=== PATIENT | male | born 1985 | race Hispanic/Latino ===

== ENCOUNTER 2018-03-05 22:18 | Emergency (ER) | payer BC ==
[2018-03-06] MEDS ORDERED: DILAUDID ONE (02:05)
[2018-03-06] MEDS ORDERED: TORADOL ONE (02:05)
[2018-03-06] MEDS ORDERED: DILAUDID IM ONE (02:13)
[2018-03-06] MEDS ORDERED: TORADOL IM ONE (02:13)
[2018-03-06 02:36] LABS: Bilirubin,Urine NEG (Negative); Blood,Urine LG (Negative); Color,Urine Yellow (Yellow); Mucus,Urine FEW /HPF; RBC,Urine > 182.0 /HPF (0.0-6.0); Urobilinogen,Urine < 2.0 mg/dL (<2.0)
[2018-03-06 02:44] LABS: Basophils # (Auto) 0.1 K/mm3 (0.0-0.1); Basophils % (Auto) 0.4 % (0.0-1.8); Eosinophils # (Auto) 0.1 K/mm3 (0.0-0.4); Eosinophils % (Auto) 0.3 % (0.0-4.3); Hematocrit 44.9 % (35.5-45.6); Hemoglobin 15.4 gm/dl (11.8-15.2); Lymphocytes # (Auto) 1.8 K/mm3 (1.2-5.4); Lymphocytes % (Auto) 11.4 % (13.4-35.0); Mean Corpuscular HGB Conc 34 % (32-34); Mean Corpuscular Hemoglobin 28 pg (28-32); Mean Corpuscular Volume 81 fl (84-94); Monocytes # (Auto) 0.9 K/mm3 (0.0-0.8); Monocytes % (Auto) 5.5 % (0.0-7.3); Platelet Count 309 K/mm3 (140-440); Red Blood Count 5.52 M/mm3 (3.65-5.03); Red Cell Distribution Width 12.9 % (13.2-15.2)
[2018-03-06 03:28] LABS: Alanine Aminotransferase 60 units/L (7-56); Albumin 4.4 g/dL (3.9-5); BUN/Creatinine Ratio 20; Blood Urea Nitrogen 14 mg/dL (9-20); Hemolysis Index 5; Lipase 26 units/L (13-60)
--- NOTE | 2018-03-06 05:29 | Cat Scan Report ---
FINAL REPORT EXAM: CT ABDOMEN PELVIS WO CON HISTORY: RLQ acute pain TECHNIQUE: Routine axial imaging was obtained of the abdomen and pelvis without oral or IV contrast. Sagittal and coronal reconstructions were reviewed. FINDINGS: The lung bases are clear. Pleural fluid is not seen. The liver is normal size reveals markedly diminished attenuation compatible with hepatic steatosis. The gallbladder, biliary tree, pancreas, spleen, and adrenal glands appear normal. The left kidney reveals multiple nonobstructing stones measuring up to 9.7 mm in diameter. The right kidney reveals moderate hydronephrosis secondary to a partially obstructing stone just below the right renal pelvis measuring 10.1 mm in diameter and 2 cm in cephalocaudal length. The appendix appears normal. The bowel loops are normal in caliber and course. There is no evidence of free fluid or adenopathy. In the pelvis the prostate gland and bladder appear normal. The skeletal structures appear well maintained. IMPRESSION: Moderate right-sided hydronephrosis secondary to a partially obstructing large stone in the inferior aspect of the right renal pelvis. Multiple nonobstructing stones noted in the left kidney. Normal appendix. Hepatic steatosis.
--- NOTE | 2018-03-06 07:50 | Emergency Department Report ---
ED Abdominal Pain HPI - General Chief Complaint: Abdominal Pain Stated Complaint: ABDOMINAL PAIN Time Seen by Provider: 03/06/18 07:40 Source: patient Mode of arrival: Ambulatory Limitations: No Limitations - History of Present Illness Initial Comments: Patient is 32 years old male with no significant past medical history except for kidney stone. Patient stated that she for the last 2-3 days he has been having a right flank pain that radiated to his groin on and off. Patient stated that he has bloating in his urine. He denied any fever but reported nausea and vomiting. Patient denied any chest pain or shortness of breath. Severity scale (0 -10): 5 - Related Data Allergies Allergy/AdvReac Type Severity Reaction Status Date / Time No Known Allergies Allergy Unverified 03/06/18 01:57 ED Review of Systems ROS: Stated complaint: ABDOMINAL PAIN Other details as noted in HPI Comment: All other systems reviewed and negative Constitutional: denies: chills, fever Respiratory: denies: cough, orthopnea, shortness of breath, SOB with exertion, SOB at rest Cardiovascular: denies: chest pain, palpitations Gastrointestinal: abdominal pain, nausea, vomiting. denies: diarrhea, constipation, hematemesis, melena, hematochezia Genitourinary: hematuria Musculoskeletal: back pain Neurological: denies: headache, weakness, numbness, paresthesias ED Past Medical Hx - Past Medical History Previous Medical History?: Yes Additional medical history: Right hand surgery 02/07/18 - Surgical History Past Surgical History?: Yes Additional Surgical History: Right Hand surgery 02/07/18 - Social History Smoking Status: Former Smoker ED Physical Exam - General Limitations: No Limitations General appearance: alert, in no apparent distress - Head Head exam: Present: atraumatic, normocephalic, normal inspection - Eye Eye exam: Present: normal appearance - ENT ENT exam: Present: normal exam, normal orophraynx, mucous membranes moist - Neck Neck exam: Present: normal inspection, full ROM. Absent: tenderness, meningismus, lymphadenopathy - Respiratory Respiratory exam: Present: normal lung sounds bilaterally. Absent: respiratory distress, wheezes, rales, rhonchi, stridor, accessory muscle use, decreased breath sounds, prolonged expiratory - Cardiovascular Cardiovascular Exam: Present: regular rate, normal rhythm, normal heart sounds - GI/Abdominal GI/Abdominal exam: Present: soft, normal bowel sounds. Absent: distended, tenderness, guarding, rebound, rigid, organomegaly, mass, bruit, pulsatile mass - Extremities Exam Extremities exam: Present: normal inspection, full ROM, normal capillary refill - Back Exam Back exam: Present: normal inspection, full ROM. Absent: CVA tenderness (R), CVA tenderness (L), muscle spasm, paraspinal tenderness, vertebral tenderness - Neurological Exam Neurological exam: Present: alert, oriented X3, CN II-XII intact, normal gait - Skin Skin exam: Present: warm, intact, normal color ED Course Vital Signs 03/06/18 03/06/18 03/06/18 01:23 01:59 02:30 Temperature 98.2 F 98.2 F Pulse Rate 73 81 Respiratory 18 20 20 Rate Blood Pressure 147/94 147/94 Blood Pressure [Right] O2 Sat by Pulse 96 98 Oximetry 03/06/18 03/06/18 03/06/18 03:00 06:15 06:58 Temperature 97.6 F Pulse Rate 74 Respiratory 20 20 20 Rate Blood Pressure Blood Pressure 132/84 [Right] O2 Sat by Pulse 99 97 Oximetry ED Medical Decision Making - Lab Data Result diagrams: 03/06/18 02:29 03/06/18 02:29 - Radiology Data Radiology results: report reviewed Referring Physician: SIDNEY CRENSHAW Patient Name: DARIN ROY Date of : 1985 Sex: Male Report Date: 2018-03-06 Report Status: [place] [address] Cat Scan Report Signed Patient: DARIN ROY MR#: [id number] : 1985 Acct:[id number] Age/Sex: 32 / M ADM Date: 03/05/18 Loc: ED Attending Dr: Ordering Physician: SIDNEY CRENSHAW MD Date of Service: 03/06/18 Procedure(s): CT abdomen pelvis wo con Accession Number(s): [id number] cc: SIDNEY CRENSHAW MD FINAL REPORT EXAM: CT ABDOMEN PELVIS WO CON HISTORY: RLQ acute pain TECHNIQUE: Routine axial imaging was obtained of the abdomen and pelvis without oral or IV contrast. Sagittal and coronal reconstructions were reviewed. FINDINGS: The lung bases are clear. Pleural fluid is not seen. The liver is normal size reveals markedly diminished attenuation compatible with hepatic steatosis. The gallbladder, biliary tree, pancreas, spleen, and adrenal glands appear normal. The left kidney reveals multiple nonobstructing stones measuring up to 9.7 mm in diameter. The right kidney reveals moderate hydronephrosis secondary to a partially obstructing stone just below the right renal pelvis measuring 10.1 mm in diameter and 2 cm in cephalocaudal length. The appendix appears normal. The bowel loops are normal in caliber and course. There is no evidence of free fluid or adenopathy. In the pelvis the prostate gland and bladder appear normal. The skeletal structures appear well maintained. IMPRESSION: Moderate right-sided hydronephrosis secondary to a partially obstructing large stone in the inferior aspect of the right renal pelvis. Multiple nonobstructing stones noted in the left kidney. Normal appendix. Hepatic steatosis. Transcribed By: RB Dictated By: CARMELLA ARTEAGA MD Electronically Authenticated By: CARMELLA ARTEAGA MD Signed Date/Time: 03/06/18524 DD/ 4 TD/TT: 03/06/18524 Critical care attestation.: If time is entered above; I have spent that time in minutes in the direct care of this critically ill patient, excluding procedure time. ED Disposition Clinical Impression: Renal colic on right side, Kidney stone on right side Disposition: - TO HOME OR SELFCARE Is pt being admited?: No Condition: Stable Instructions: Kidney Stones (ED) Referrals: ALMA SANDOVAL MD [Staff Physician] - 3-5 Days
[2018-03-06] MEDS ORDERED: NACL 0.9% 1000 ML 1,000 ML IV ONE (07:55)
[2018-03-06] MEDS ORDERED: ROCEPHIN/NS 1 GM/50 ML 1 GM/50 ML BAG IV ONE (07:55)
[2018-03-06] MEDS ORDERED: cefTRIAXone 1 GM in NACL 0.9% 20 ML IV ONE (08:30)
[2018-03-06 09:26] VITALS: BP 145/89
== END 2018-03-06 09:27 | disposition home or self-care (01) ==
LOC: ED 22:18
DX: N20.0 Calculus of kidney (principal); Z87.891 Personal history of nicotine dependence
CPT/HCPCS: 36415; 74176; 80053; 81001; 83690; 85025; 96365; 96372; 99284; J0696; J1170; J1885; J7030

== ENCOUNTER 2018-03-15 11:08 | Day surgery (SDC) | payer BC ==
[~2018-03-15 11:08] MED LIST: ANCEF/STERILE WATER 2 GM/20 ML IV NR; LACTATED RINGERS 1,000 ML IV SCH; VERSED IV NR
--- NOTE | 2018-03-15 12:48 | Anesthesia Consultation ---
Anesthesia Consult and Med Hx Date of service: 03/15/18 - Airway Anesthetic Teeth Evaluation: Good (facial hair) ROM Head & Neck: Adequate Mental/Hyoid Distance: Adequate Mallampati Class: Class III Intubation Access Assessment: Possibly Difficult - Pulmonary Exam CTA: Yes - Cardiac Exam Cardiac Exam: RRR - Pre-Operative Health Status ASA Pre-Surgery Classification: ASA2 Proposed Anesthetic Plan: General - Pulmonary Hx Smoking: Yes (STOPPED X 4 YRS , 1 PPD X 4 YRS) Hx Sleep Apnea: No (ALBA PRE SCREEN LOW RISK) - Cardiovascular System Hx Hypertension: No - Other Systems Hx Cancer: No Hx Obesity: Yes
--- NOTE | 2018-03-15 12:49 | Anesthesia Day of Surgery ---
Anesthesia Day of Surgery - Day of Surgery Patient Examined: Yes Patient H&P Reviewed: Yes Patient is NPO: Yes
[2018-03-15] MEDS ORDERED: XYLOCAINE MPF 2% ONE (14:26)
[2018-03-15] MEDS ORDERED: DIPRIVAN 10 MG/ML IV ONE (14:26)
--- NOTE | 2018-03-15 14:56 | Post Operative Note ---
Date of procedure: 03/15/18 Pre-op diagnosis: r renal ureteral stones Post-op diagnosis: same Findings: as above Procedure: cysto rpg stent r eswl Anesthesia: GETA Surgeon: NORBERTO AGUILAR Estimated blood loss: minimal Pathology: none Condition: stable Disposition: PACU
--- NOTE | 2018-03-15 14:57 | Discharge Summary ---
Short Stay Discharge Plan Activity: other (straining ) Weight Bearing Status: Full Weight Bearing Diet: low fat, low cholesterol, low salt Special Instructions: other (inc fluids ) Durable Medical Equipment Needed Upon Discharge: other (pt has j stent ) Follow up with: PRIMARY CARE, [Primary Care Provider] - 7 Days ALMA SANDOVAL MD [Staff Physician] - 7 Days
[2018-03-15] MEDS ORDERED: OMNIPAQUE 300 MG/50 ML (CATH LAB) IV ONE (15:00)
[2018-03-15] MEDS ORDERED: WATER FOR IRRIG STERILE IR ONE (15:00)
[2018-03-15] MEDS ORDERED: DILAUDID ONE (16:10)
[2018-03-15] MEDS: DILAUDID IV PRN ×4 (16:12→16:45)
[2018-03-15] MEDS ORDERED: ZOFRAN IV PRN (16:25)
[2018-03-15] MEDS ORDERED: PERCOCET 5/325 PO PRN (16:25)
--- NOTE | 2018-03-15 17:25 | Post Anesthesia Evaluation ---
- Post Anesthesia Evaluation Patient Participated: Yes Airway Patent: Yes Stable Respiratory Function: Yes Nausea/Vomiting: No Temp > 96.8F: Yes Pain Manageable: Yes Adequeate Hydration: Yes Anesthesia Complications: No Block Receding Appropriately: Not Applicable Patient on Ventilator: No
[2018-03-15 18:31] VITALS: BP 129/85
--- NOTE | 2018-03-15 21:34 | Operative Report ---
PREOPERATIVE DIAGNOSIS: Renal calculi, UPJ stone, right. POSTOPERATIVE DIAGNOSIS: Renal calculi, UPJ stone, right. PROCEDURE: Right lithotripsy followed by right cystoscopy and retrograde and double-J stent. SURGEON: Rigo Conklin MD ANESTHESIA: General. FINDINGS: This is a gentleman with right flank pain, large stones. He now presents for treatment. All risks and complications were discussed. DESCRIPTION OF PROCEDURE: The patient was brought to the operating room and placed on the operating table. Following induction of anesthesia, placed in the supine position, prepped and draped in usual sterile fashion. Stone was well localized, both the AP and oblique image. Shocks were begun at 1 kV, increased after a renal pause to 6 kV. A total of 2500 shocks were given. The patient tolerated the procedure well. There were no significant complications. There was good visualization. The stone began to spread out. There was a prominent ____, may need multiple treatments. At this point, a cystoscopy was carried out and showed no bladder lesions. He is a very large gentleman, about 6 feet 4 inches and well over 250 pounds. We were able to get a wire up. Retrograde showed some mild right hydronephrosis and the wire and a 6-Tajik 28 cm double J coiled in the lower pole and in the bladder. The patient tolerated the procedure well and brought to recovery room in stable condition. PLAN: Follow up stent care and retreatment as needed. JOB# [id number] LIEN/KAYCE
== END 2018-03-15 11:09 | disposition home or self-care (01) ==
LOC: OR 11:08
PROVIDERS: ATTEND Urology
DX: N13.2 Hydronephrosis with renal and ureteral calculous obstruction (principal); I10 Essential (primary) hypertension; E66.9 Obesity, unspecified; Z68.34 Body mass index [BMI] 34.0-34.9, adult; Z87.891 Personal history of nicotine dependence
CPT/HCPCS: 50590; 52332; A4217; C1726; C1758; C1769; C2617; J0690; J1170; J2405; J2704; J7120

== ENCOUNTER 2019-01-14 08:07 | Day surgery (SDC) | payer BC ==
[2019-01-14] MEDS ORDERED: ANCEF/STERILE WATER 2 GM/20 ML IV NR (08:43)
[2019-01-14] MEDS ORDERED: LACTATED RINGERS 1,000 ML IV SCH (09:00)
[2019-01-14] MEDS ORDERED: VERSED IV NR (09:33)
--- NOTE | 2019-01-14 09:43 | Anesthesia Consultation ---
Anesthesia Consult and Med Hx Date of service: 01/14/19 - Airway Anesthetic Teeth Evaluation: Good ROM Head & Neck: Adequate Mental/Hyoid Distance: Adequate Mallampati Class: Class II Intubation Access Assessment: Probably Good - Pulmonary Exam CTA: Yes - Cardiac Exam Cardiac Exam: RRR - Pre-Operative Health Status ASA Pre-Surgery Classification: ASA2 Proposed Anesthetic Plan: General - Pulmonary Hx Smoking: Yes (STOPPED X 4 YRS , 4 pc yr hx) Hx Respiratory Symptoms: No COPD: No Hx Sleep Apnea: No (ALBA PRE SCREEN LOW RISK) - Cardiovascular System Hx Hypertension: No Hx Heart Attack/AMI: No Hx Percutaneous Transluminal Coronary Angioplasty (PTCA): No - Central Nervous System Hx Seizures: No CVA: No - Gastrointestinal Hx Gastroesophageal Reflux Disease: No - Endocrine Hx Renal Disease: No Hx Liver Disease: No Hx Insulin Dependent Diabetes: No Hx Non-Insulin Dependent Diabetes: No Hx Thyroid Disease: No - Other Systems Hx Obesity: Yes - Additional Comments Anesthesia Medical History Comments: No hx anesthetic complications.
[2019-01-14] MEDS ORDERED: DILAUDID IV PRN (09:44)
--- NOTE | 2019-01-14 09:44 | Anesthesia Day of Surgery ---
Anesthesia Day of Surgery - Day of Surgery Patient Examined: Yes Patient H&P Reviewed: Yes Patient is NPO: Yes
[2019-01-14] MEDS ORDERED: XYLOCAINE MPF 2% ONE (10:40)
[2019-01-14] MEDS ORDERED: DILAUDID ONE (10:40)
[2019-01-14] MEDS ORDERED: DIPRIVAN 10 MG/ML IV ONE (10:41)
[2019-01-14] MEDS ORDERED: WATER FOR IRRIG STERILE IR ONE (11:41)
[2019-01-14] MEDS ORDERED: ZOFRAN ONE (12:08)
[2019-01-14] MEDS ORDERED: NACL 0.9% 1000 ML 1,000 ML ONE (12:16)
--- NOTE | 2019-01-14 12:19 | Post Operative Note ---
Date of procedure: 01/14/19 Pre-op diagnosis: stones Post-op diagnosis: same Findings: large fragment Procedure: cysto ureteroscopy stent laser Anesthesia: LANDY Surgeon: NORBERTO AGUILAR Estimated blood loss: none Pathology: none Condition: stable Disposition: PACU
--- NOTE | 2019-01-14 12:21 | Discharge Summary ---
Short Stay Discharge Plan Activity: other (no straining ) Weight Bearing Status: Full Weight Bearing Diet: low fat, low cholesterol, low salt Special Instructions: other (inc fluids ) Durable Medical Equipment Needed Upon Discharge: other (j stent ) Follow up with: PRIMARY CARE, [Primary Care Provider] - 7 Days NORBERTO AGUILAR MD [Staff Physician] - 7 Days
--- NOTE | 2019-01-14 12:45 | Operative Report ---
PREOPERATIVE DIAGNOSIS: Large left ureteral renal stone. POSTOPERATIVE DIAGNOSES: Large left ureteral renal stone. PROCEDURE: Cystoscopy, stent exchange, left ureteroscopy with laser, large fragments of stone. SURGEON: Rigo Conklin M.D. ANESTHESIA: General. FINDINGS: This is a gentleman who had 3 large stones post-lithotripsy. There were in the upper ureter. He now presents for followup. We could not remove the stent initially and I did not want to take a chance to try to remove it in the office until I was sure that the ureter was free of stones. DESCRIPTION OF PROCEDURE: The patient was brought to the operating room and placed on the operating table. Following induction of anesthesia, placed in lithotomy position, prepped and draped in the usual sterile fashion. There was minimal debris on the lower part of the coil of the stent, it was partially removed, but I think it was wedged around another stone. We then inserted an open ended in a Glidewire and coiled it in the kidney. The stent was then removed and ureteroscopy showed a stone after we placed a second wire, a stone in the kidney. There was also a significant fragment in the ureter. That was lasered and portion went up into the kidney. We followed that into a lateral lower pole zainab and lasered it as small as we could. The patient tolerated the procedure well. There was [id number] hydronephrosis, which was emptied intermittently with the open-ended catheter. A double J coiled in the kidney and bladder. He tolerated the procedure well. We left the string and secured it to the penis, brought to recovery in stable condition. JOB# [id number] LIEN/KAYCE
[2019-01-14 13:13] VITALS: BP 115/81
--- NOTE | 2019-01-14 17:06 | Post Anesthesia Evaluation ---
- Post Anesthesia Evaluation Patient Participated: Yes Airway Patent: Yes Stable Respiratory Function: Yes Nausea/Vomiting: No Temp > 96.8F: Yes Pain Manageable: Yes Adequeate Hydration: Yes Anesthesia Complications: No
--- NOTE | 2019-01-15 07:40 | Fluoroscopy Report ---
FLUOROSCOPY RETROGRADE UROGRAPHY: HISTORY: Left ureteral stone. FINDINGS: Fluoroscopy was provided by radiology during retrograde urography by the urologist. 7 fluoroscopic images were captured. The images demonstrate a left ureteral stone in the mid to distal left ureter. Left ureteroscopy was performed. The stone was removed with use of a laser. Left ureteral stent exchange was performed. Please correlate with the procedural report as needed. IMPRESSION: Left ureteral stone removal. Left ureteral stent replacement.
== END 2019-01-14 13:50 | disposition home or self-care (01) ==
LOC: OR 08:07
PROVIDERS: ATTEND Urology
DX: N13.2 Hydronephrosis with renal and ureteral calculous obstruction (principal); E66.9 Obesity, unspecified; Z68.30 Body mass index [BMI] 30.0-30.9, adult; Z98.890 Other specified postprocedural states; Z79.899 Other long term (current) drug therapy; Z87.891 Personal history of nicotine dependence; Z96.0 Presence of urogenital implants
CPT/HCPCS: 52356; 74420; A4217; C1758; C1769; C2617; J0690; J1170; J2250; J2405; J2704; J7030; J7120; Q9967

== ENCOUNTER 2019-10-25 12:18 | Outpatient (CLI) | payer BC ==
[2019-10-25 12:33] LABS: Basophils # (Auto) 0.1 K/mm3 (0.0-0.1); Basophils % (Auto) 1.1 % (0.0-1.8); Eosinophils # (Auto) 0.2 K/mm3 (0.0-0.4); Eosinophils % (Auto) 2.3 % (0.0-4.3); Hematocrit 47.3 % (35.5-45.6); Hemoglobin 16.3 gm/dl (11.8-15.2); Lymphocytes # (Auto) 2.7 K/mm3 (1.2-5.4); Lymphocytes % (Auto) 35.7 % (13.4-35.0); Mean Corpuscular HGB Conc 34 % (32-34); Mean Corpuscular Volume 83 fl (84-94); Monocytes # (Auto) 0.7 K/mm3 (0.0-0.8); Monocytes % (Auto) 9.6 % (0.0-7.3); Platelet Count 318 K/mm3 (140-440); Red Blood Count 5.72 M/mm3 (3.65-5.03); Red Cell Distribution Width 12.9 % (13.2-15.2)
[2019-10-25 12:49] LABS: Alanine Aminotransferase 24 units/L (7-56); Albumin 4.9 g/dL (3.9-5); BUN/Creatinine Ratio 20; Blood Urea Nitrogen 14 mg/dL (9-20); Calcium 9.5 mg/dL (8.4-10.2); Chol/HDL Ratio 5.77 %; HDL Cholesterol 35 mg/dL (40-59); Hemolysis Index 7; LDL Cholesterol,Direct 161 mg/dL (50-130)
[2019-10-29 10:24] LABS: Vitamin D, 25-OH, D2 <4 ng/mL
== END 2019-10-25 12:19 | disposition home or self-care (01) ==
LOC: LAB 12:18
PROVIDERS: ATTEND Internal Medicine
DX: Z00.00 Encounter for general adult medical examination without abnormal findings (principal); Z13.29 Encounter for screening for other suspected endocrine disorder; Z13.220 Encounter for screening for lipoid disorders; Z13.21 Encounter for screening for nutritional disorder; G47.33 Obstructive sleep apnea (adult) (pediatric); E66.9 Obesity, unspecified; Z87.891 Personal history of nicotine dependence; Z98.890 Other specified postprocedural states
CPT/HCPCS: 36415; 80053; 80061; 82306; 82607; 83036; 84443; 85025